=== PATIENT | male | born 1960 | race Caucasian/White ===

== ENCOUNTER 2021-11-11 11:34 | Emergency (ER) | payer SELFPAY ==
[~2021-11-11] VITALS: Ht 188 cm; Wt 95.5 kg
[~2021-11-11 11:34] MED LIST: HYDR-4353 PO
[2021-11-11 11:46] VITALS: BP 157/95
[2021-11-11] MEDS: HYDROcodone/acetaminophen 5mg/325mg tablet PO ONE (14:52)
[2021-11-11] MEDS ORDERED: IBUP-1986 PO (15:48)
[2021-11-11] MEDS ORDERED: HYDR-3965 PO ×2 (15:48→15:49)
== END 2021-11-11 16:05 | disposition home or self-care (01) ==
LOC: ER 11:35
DX: S82.51XA Displaced fracture of medial malleolus of right tibia, initial encounter for closed fracture (principal); S82.62XA Displaced fracture of lateral malleolus of left fibula, initial encounter for closed fracture; Z79.899 Other long term (current) drug therapy; W22.8XXA Striking against or struck by other objects, initial encounter; Y93.89 Activity, other specified; Y92.89 Other specified places as the place of occurrence of the external cause; Y99.8 Other external cause status
CPT/HCPCS: 29515; 73140; 73610; 99284